=== PATIENT | female | born 1930 | race Caucasian/White ===

== ENCOUNTER → 2016-12-16 | Outpatient (CLI) | payer OTHER, MEDICARE ==
[2016-12-16 08:15] LABS: BASOPHILS # (AUTO) 0.05 10*3/UL; EOSINOPHILS % (AUTO) 1.6 % (0-8); HEMATOCRIT 39.5 % (37.0-47.0); HEMOGLOBIN 13.5 g/dL (12.0-16.0); IMM GRAN % (AUTO) 0.2 % (0-5); IMM GRAN# (AUTO) 0.01 10*3/UL; LYMPHOCYTES # (AUTO) 1.27 10*3/uL; LYMPHOCYTES % (AUTO) 25.6 % (10-50); MEAN CORPUSCULAR HEMOGLOBIN 30.9 PG (27-31); MEAN CORPUSCULAR HGB CONC 34.2 g/dL (33-37); MEAN PLATELET VOLUME 10.3 FL (7.4-12.2); MONOCYTES # (AUTO) 0.63 10*3/UL (0.3-0.8); MONOCYTES % (AUTO) 12.7 % (5-15); NEUTROPHILS # (AUTO) 2.93 10*3/UL; NEUTROPHILS % (AUTO) 58.9 % (50-80); PLATELET MORPHOLOGY COMMENT NORMAL MORPHOLOGY (NORM); RDW COEFFICIENT OF VARIATION 12.7 % (11.5-14.5); RED BLOOD COUNT 4.37 10^6/uL (4.20-5.40); WHITE BLOOD COUNT 4.97 10^3/uL (4.8-10.8)
[2016-12-16 08:29] LABS: BILIRUBIN,TOTAL 0.6 mg/dL (0.3-1.2); CALCIUM 9.9 mg/dL (8.7-10.7); CREATININE 0.8 mg/dL (0.50-1.20); POTASSIUM 4.4 meq/L (3.8-5.2); TOTAL PROTEIN 7.1 g/dL (6.1-8.0)
--- NOTE | 2016-12-22 11:24 | HOLTER ---
[facility] [id number]
== END ==
LOC: LAB 07:56
PROVIDERS: ATTEND Internal Medicine
DX: I10 Essential (primary) hypertension (principal); M81.0 Age-related osteoporosis without current pathological fracture; R53.83 Other fatigue
CPT/HCPCS: 36415; 80053; 80061; 84443; 85025

== ENCOUNTER → 2017-03-04 | Outpatient (CLI) | payer OTHER, MEDICARE ==
[2017-03-04 11:32] LABS: BUN/CREATININE RATIO 17.77 (6-20); CALCIUM 10.6 mg/dL (8.7-10.7)
== END ==
LOC: LAB 10:59
PROVIDERS: ATTEND Internal Medicine
DX: I10 Essential (primary) hypertension (principal); M81.0 Age-related osteoporosis without current pathological fracture; R53.83 Other fatigue; R60.9 Edema, unspecified
CPT/HCPCS: 36415; 80048

== ENCOUNTER → 2017-03-09 | Outpatient (CLI) | payer OTHER, MEDICARE | LOC: MMPC 11:11 | PROVIDERS: ATTEND Internal Medicine | DX: M81.0 Age-related osteoporosis without current pathological fracture (principal) | CPT/HCPCS: G0463; J0897 ==

== ENCOUNTER → 2017-05-31 | Outpatient (CLI) | payer OTHER, MEDICARE | LOC: MMPC 11:11 | PROVIDERS: ATTEND Internal Medicine | DX: R42 Dizziness and giddiness (principal); R00.1 Bradycardia, unspecified | CPT/HCPCS: 99214; G0463 ==